=== PATIENT | male | born 2005 | race Caucasian/White ===

== ENCOUNTER 2025-01-31 14:17 | Emergency (ER) | payer OTHER, SELFPAY ==
[2025-01-31 14:19] VITALS: BP 144/58; PULSE 62; RESP 15; TEMP 36.3; O2SAT 99; BMI 25.8
--- NOTE | 2025-01-31 14:28 | ED.VIS.LOWEX ---
HPI History of Present Illness HPI Narrative: Patient presents with injury to his right foot that occurred today. Patient states he dropped a 45 pound weight onto his 2nd, 3rd, 4th, and 5th toes. Patient states the pain is sharp. Patient states it is worse with walking. Patient states nothing helps with the pain. Patient denies any bleeding. Patient denies any paresthesias or weakness. Patient denies any other injuries. Chief Complaint: Lower Extremity Injury Informant: patient Occured/Mechanism Mechanism/Context: Yes blunt trauma and Yes direct blow Onset/Context/Timing Onset: Today Context: Sudden Onset Timing: Continuous Quality of Pain: Sharp Location: Right 2nd, 3rd, 4th, and 5th toes Worsened by: Walking Relieved by: Nothing PFSH PFSH Allergy/AdvReac Type Severity Reaction Status Date / Time Latex, Natural Rubber Allergy Mild Hives Verified 01/31/25 14:18 Penicillins Allergy Mild Hives Verified 01/31/25 14:18 Surgical History (Updated 01/31/25 @ 15:[address] Naif Harrington, DO) Status post ORIF of fracture of ankle ROS ROS ED Constitutional Constitutional ED: Denies chills or fever(s) Eyes Eyes: Denies blurry vision or change in vision ENT ENT ED: Denies rhinorrhea or sore throat Cardiovascular Cardiovascular: Denies chest pain or palpitations Respiratory/Chest Respiratory/Chest: Denies cough or dyspnea Gastrointestinal Gastrointestinal: Denies nausea or vomiting Genitourinary Genitourinary ED: Denies dysuria or hematuria Musculoskeletal Musculoskeletal: Denies back pain or neck pain Integumentary Denies abscess or rash Neurologic Neurologic: Denies headache(s) or weakness Allergic/Immunologic Allergic/Immunologic ED: Denies mouth swelling or urticaria EXAM Physical Exam Const Vital Signs: 01/31/25 14:19 Temperature 97.4 F L Temperature Source Temporal Pulse Rate 62 Respiratory Rate 15 Blood Pressure 144/58 H Blood Pressure Mean 86 Pulse Ox 99 Oxygen Delivery Method Room Air Positive well nourished and well developed General Appearance ED: well developed and NAD HEENT Reports moist mucous membranes normocephalic and atraumatic Neck full ROM and supple Extremity Extremity Narrative: There is tenderness with mild edema and ecchymosis over the distal phalanx of the right third toe. There is mild tenderness over the 2nd, 3rd, 4th, and 5th toes. There is no obvious deformity noted. Range of motion was limited in all motions of the toes secondary to pain. There is no tenderness over the metatarsals or malleoli. Pedal pulses are equal bilaterally. Capillary refill was less than 2 seconds in all digits. Sensation was intact to light touch in all digits. Neuro oriented x3, CN's II-XII intact bilaterally, moves all extremities and no sensory deficits noted Sensorium / Orientation: alert Motor Exam: strength 5/5 throughout Psych mental status grossly normal MDM MDM MDM Narrative Medical decision making narrative: Differential diagnosis includes fracture, contusion, and sprain. X-rays of the right foot will be obtained to assess for fracture. Radiography Diagnostic Testing: Clinical Impression(s) from Imaging Studies Foot X-Ray 01/31/25 14:44 IMPRESSION: No acute osseous abnormality. Reading Location: [facility] [place] X-rays of the right foot were obtained. There are 3 views. On my independent interpretation, there is no acute fracture or dislocation noted. There is no radiopaque foreign body noted. Radiologist also interpreted the x-rays and agrees. Treatment and Re-Evaluation Narrative: Patient was advised of his findings. Patient was instructed to ice and elevate the right foot. Patient was given a postoperative shoe. Patient was instructed to follow-up with his primary care physician in 5 to 7 days. Patient understood and was agreeable with the plan. All questions were answered. Discharge Plan Triage Chief Complaint: Lower Extremity Injury ED Provider: Naif Harrington Dx/Rx/DC Orders Clinical Impression: Contusion of foot, right Instructions: ED Foot Contusion Primary Care Provider: Richy Hudson,Out of Referrals: Richy Hudson,Out of [Primary Care Provider, Medical] - As Needed Print Language: Ivorian Disposition Disposition: Home, Self Care
--- NOTE | 2025-01-31 14:44 | RAD_ITS ---
PROCEDURE: FOOT MIN 3 VIEWS 01/31/2025 REASON FOR EXAM: INJURY/PAIN. Dropped 45 lb plate on foot. TECHNIQUE: Procedure Code: RADFO Modality: DX Procedure: FOOT MIN 3 VIEWS Laterality: Right COMPARISON: None FINDINGS: BONES: No acute fracture or focal osseous lesion. JOINTS: No dislocation. The joint spaces are normal. SOFT TISSUES: No significant abnormality seen. RAD/Foot min 3 Views IMPRESSION: No acute osseous abnormality. Reading Location: [id number]
== END 2025-01-31 16:01 | disposition home or self-care (01) ==
PROVIDERS: Emergency Provider Emergency Medicine; Visit Provider Emergency Medicine
DX: S90.31XA Contusion of right foot, initial encounter (principal); W20.8XXA Other cause of strike by thrown, projected or falling object, initial encounter
CPT/HCPCS: 73630; 99283